=== PATIENT | male | born 1950 | race Caucasian/White ===

== ENCOUNTER 2022-05-09 06:03 | Day surgery (SDC) | payer MEDICARE, BC ==
[~2022-05-09] VITALS: Ht 172.7 cm; Wt 73.2 kg
[~2022-05-09 06:03] MED LIST: ASCO500 PO; GLUC500 PO; MULTIPLE VITAM1 EACH PO; SUPER BETA PROSTATE PO; VITB100 PO
--- NOTE | 2022-05-09 06:55 | NUR ---
Ambulatory in Day Surgery. USES CANE. History, Chart, Medications and Allergies reviewed before start of procedure. AT BS.
[2022-05-09] MEDS ORDERED: ASPIR 8181 M1 PO (16:43)
[2022-05-09] MEDS ORDERED: Percocet 5-3251 EACH PO (16:46)
--- NOTE | 2022-05-09 18:31 | NUR ---
DISCHARGE SUMMARY POD0 R ALDO, A/OX4, VSS, TOLERATING PO, VOIDING WELL, WORKED WITH THERAPY TWICE THIS SHIFT AND DID WELL PER PT REPORT, PATIENT REQUESTED TO BE DISCHARGED TODAY WHICH WAS CLEARED WITH SURGEON AND PT. DISCUSSED DISCHARGE INFORMATION WITH HIM AND HIS INCLUDING HOME CARE, MEDICATIONS, THERAPY, CONTACT INFORMATION SHOULD QUESTIONS COME UP AFTER DISCHARGE, AND FOLLOW UP APPOINTMENTS. NO QEUSTIONS AT THIS TIME. IV ACCESS REMOVED PRIOR TO DISCHARGE. PT ESCORTED OUT VIA WC TO PRIVATE AUTO TO GO HOME.
== END 2022-05-09 17:57 | disposition home or self-care (01) ==
LOC: ORSCMMR 06:03 → ORD 07:30 → ORSCMMR 08:00 → ORD 09:15 → SURS 11:15 → ORSCMMR 17:57
PROVIDERS: Orthopaedic Surgery
PROC: 0SR90JZ Replacement of Right Hip Joint with Synthetic Substitute, Open Approach (ICD-10-PCS; principal; 2022-05-09 08:00)
DX: M16.11 Unilateral primary osteoarthritis, right hip (principal)
CPT/HCPCS: 72170; 97110; 97161; 97530; A9270; C1713; C1776; J0171; J0690; J0735; J1100; J1885; J2250; J2270; J2370; J2405; J2704; J2795; J3010; J7120

== ENCOUNTER 2024-05-08 06:56 | Day surgery (SDC) | payer MEDICARE, BC ==
[~2024-05-08] VITALS: Ht 172.7 cm; Wt 74.9 kg
[2024-05-08] VITALS (12 sets, daily range): BP systolic 94–123; BP diastolic 56–72
[~2024-05-08 06:56] MED LIST changes: +ASPIR 8181 M1 PO; +Lactated Ringer's 1,000 ML IV SCH; +Percocet 5-3251 EACH PO
--- NOTE | 2024-05-08 07:46 | NUR ---
Ambulatory in Day Surgery History, Chart, Medications and Allergies reviewed before start of procedure.Pre-Op teaching done. Pt verbalizes understanding. Patient States Post-Procedure ride home has been arranged.
[2024-05-08] MEDS ORDERED: propofoL 20 ML IV ONE (08:12)
--- NOTE | 2024-05-08 08:16 | NUR ---
05/08/24 0816 Mima Patiño CONFIRMED AND REVIEWED H&P, MEDCICATIONS, ALLERGIES, MEDICAL HISTORY, RESPIRATORY HISTORY, VITAL SIGNS, 3-LEAD EKG, CONSENTS, AND PHYSICIAN ORDERS. PATIENT CONFIRMS NPO STATUS AND AGREES WITH SCHEDULED PROCEDURE. MONITOR INTACT WITH CONTINUOUS PULSE OXIMETRY, CAPNOGRAPHY, 3-LEAD EKG, INTERMITTENT BP. SUPPLEMENTAL O2 TO BE TITRATED THROUGHOUT PROCEDURE TO MAINTAIN O2 SATURATION ABOVE 90%. PATIENT DETERMINED TO BE ASA APPROPRIATE FOR PROPOFOL SEDATION PRIOR TO START OF PROCEDURE BY .MALLAMPATI CLASS 3 AIRWAY: VISUALIZATION OF ONLY THE BASE OF THE UV[place].
== END 2024-05-08 09:00 | disposition home or self-care (01) ==
LOC: ORSCMMR 06:56 → ORD 08:00 → ORSCMMR 09:00
PROVIDERS: Internal Medicine Gastroenterology
PROC: 0DJD8ZZ Inspection of Lower Intestinal Tract, Via Natural or Artificial Opening Endoscopic (ICD-10-PCS; principal; 2024-05-08 08:00)
DX: Z12.11 Encounter for screening for malignant neoplasm of colon (principal); Z86.0101 Personal history of adenomatous and serrated colon polyps
CPT/HCPCS: J2704; J7120